=== PATIENT | male | born 1990 | race Caucasian/White ===

== ENCOUNTER 2017-09-26 20:34 | Emergency (ER) | payer BC ==
[2017-09-26 20:52] VITALS: BP 126/72; PULSE 62; TEMP 98.1; BMI 24.7
--- NOTE | 2017-09-26 21:30 | PDOC ---
History of Present Illness - General Chief Complaint: Pain, Acute Stated Complaint: INJURY Time Seen by Provider: 09/26/17 20:57 - History of Present Illness Initial Comments: 09/26/17 21:19 CHIEF COMPLAINT: finger pain HISTORY OF PRESENT ILLNESS: 26 yo M with no significant PMH presents to fast track with pain to L index finger s/p injury playing basketball. Patient reports that his finger "looked like it was dislocated, but the certified athletic trainer had gone for the day and so I popped it back in myself." Patient reports that the pain is manageable and "it doesn't really hurt now until I bend the finger." No recent travel or sick contacts. PAST MEDICAL HISTORY: Denies past medical history FAMILY HISTORY: Denies SOCIAL HISTORY: Denies tobacco, alcohol, illicit drug use. SURGICAL HISTORY: Denies ALLERGIES: No known drug allergies REVIEW OF SYSTEMS as per HPI PHYSICAL EXAM General Appearance: Well-appearing, appropriately dressed. No apparent distress. HEENT: EOMI, PERRLA. No conjunctival pallor. No photophobia, scleral icterus. Respiratory/Chest: Lungs CTAB. Cardiovascular: RRR. S1, S2. Musculoskeletal/Extremities: Swollen left index finger with ecchymosis to DIP. No deformity, FROM to finger. FROM of all other extremities, normal capillary refill. Pelvis Stable. No CVA tenderness. No tenderness to extremities, pedal edema, swelling, erythema or deformity. Integumentary: Appropriate color, dry, warm. 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 Fully oriented, alert. Appropriate mood/affect. Motor strength 5/5. No appreciable EOM palsy, facial droop or sensory deficit. Past History - Past Medical History Allergies/Adverse Reactions: Allergies Allergy/AdvReac Type Severity Reaction Status Date / Time No Known Allergies Allergy Verified 09/26/17 20:49 Home Medications: Ambulatory Orders NK [No Known Home Medication] 09/26/17 - Suicide/Smoking/Psychosocial Hx Smoking History: Never smoked Hx Alcohol Use: No Drug/Substance Use Hx: No *Physical Exam - Vital Signs Last Vital Signs Temp Pulse Resp BP Pulse Ox 98.1 F 62 16 126/72 100 09/26/17 20:40 09/26/17 20:40 09/26/17 20:40 09/26/17 20:40 09/26/17 20:40 ED Treatment Course - RADIOLOGY Radiology Studies Ordered: Category Date Time Status FINGER(S) LEFT [RAD] Stat Radiology 09/26/17 20:57 Ordered Medical Decision Making - Medical Decision Making 09/26/17 21:30 26 yo M with no significant PMH presents to fast track with pain to L index finger s/p injury playing basketball. Patient refused Toradol for pain. Splint applied to finger. Advised patient to f/u with ortho for further evaluation and of signs and symptoms for return to ER; patient verbalized understanding and agrees to plan. *DC/Admit/Observation/Transfer Diagnosis at time of Disposition: Sprain of index finger Qualifiers: Encounter type: initial encounter Sprain of finger site: interphalangeal joint Laterality: left Qualified Code(s): S63.631A - Sprain of interphalangeal joint of left index finger, initial encounter - Discharge Dispostion Disposition: HOME Condition at time of disposition: Stable Admit: No - Referrals Referrals: Aristides Martinez MD [Staff Physician] - - Patient Instructions Printed Discharge Instructions: DI for Finger Sprain Additional Instructions: Please take Motrin or Advil (ibuprofen) for pain/swelling. As discussed, please follow up with orthopedics this week for further evaluation of your finger injury. If you develop worsening swelling, loss of sensation, or change in temperature of your finger, or any new or worsening symptoms, please return to the ER. - Post Discharge Activity Forms/Work/School Notes: Back to School
== END 2017-09-26 21:50 | disposition home or self-care (01) ==
LOC: JERFT 20:34
DX: S63.631A Sprain of interphalangeal joint of left index finger, initial encounter (principal); X50.0XXA Overexertion from strenuous movement or load, initial encounter; X50.9XXA Other and unspecified overexertion or strenuous movements or postures, initial encounter; Y93.67 Activity, basketball; Y92.310 Basketball court as the place of occurrence of the external cause; Y99.8 Other external cause status
CPT/HCPCS: 73140-TC-LT; 99281-25